=== PATIENT | male | born 1945 | race Caucasian/White ===

== ENCOUNTER 2021-05-04 12:50 | Emergency (ER) | payer MEDICARE ==
[2021-05-04] MEDS ORDERED: Ketorolac 60 MG/2 ML SDV IM ONE (13:32)
[2021-05-04] MEDS ORDERED: traMADol 50 MG Tab PO ONE (13:34)
--- NOTE | 2021-05-04 13:40 | EDM.PDOC ---
ED HPI GENERAL MEDICAL PROBLEM - General Chief Complaint: Lower Extremity Injury/Pain Stated Complaint: L KNEE PAIN Time Seen by Provider: 05/04/21 12:51 Source of Information: Reports: Patient History Limitations: Reports: No Limitations - History of Present Illness INITIAL COMMENTS - FREE TEXT/NARRATIVE: HISTORY AND PHYSICAL: History of present illness: The patient is a 76-year-old male who presents to the emergency room with complaints of left medial knee pain for approximately 2 months. He states that the last 2 to 3 weeks the pain has intensified to an 8 out of 10. Patient states that he has been taking up to 8 Motrins a day, 2 extra strength Tylenol, and 2 Aleve daily. His last dose of Motrin was at 02 100 this morning. The patient states that his pain stays the same position or weightbearing he is. The patient denies any injury. The patient states that he did have previous arthroscopic knee surgery previously but is unsure why. Patient has a appointme nt on Friday at [facility] with a provider from [place] and a appointment in [place] on Friday. The patient is here primarily for pain control. Patient does state that he has some small amount of swelling in his left lower extremity. Patient denies any fever, chills, headache, change in vision, syncope or near syncope. Denies any chest pain, back pain, shortness of breath or cough. Denies any abdominal pain, nausea, vomiting, diarrhea, constipation or dysuria. Has not noted any blood in urine or stool. Patient has been eating and drinking appropriately. Review of systems: As per history of present illness and below otherwise all systems reviewed and negative. Past medical history: As per history of present illness and as reviewed below otherwise noncontributory. Surgical history: As per history of present illness and as reviewed below otherwise noncontributory. Social history: See social history for further information Family history: As per history of present illness and as reviewed below otherwise noncontributory. Physical exam: General: Well developed and well nourished. Alert and orientated x 3. Nontoxic in appearance and in no acute distress. Vital signs are stable and have been reviewed by me. Nursing notes were reviewed. HEENT: Atraumatic, normocephalic, pupils equal and reactive bilaterally, negative for conjunctival pallor or scleral icterus, mucous membranes moist, TMs normal bilaterally, throat clear, neck supple, nontender, trachea midline. No drooling or trismus noted. No meningeal signs. No hot potato voice noted. Lungs: Clear to auscultation bilaterally. No wheezes, rales, or rhonchi. Chest nontender. Normal work of breathing, no accessory muscles used. Heart: S1S2, regular rate and rhythm without overt murmur, gallops, or rubs. No JVD. 1+ left foot. Abdomen: Soft, nondistended, nontender. Normoactive bowel sounds. Negative for masses or costovertebral tenderness. Skin: Intact, warm, dry. No lesions or rashes noted. Hematologic: No petechiae or purpra. Mucosa appropriate color and normal nail bed color and refill. Extremities: Atraumatic, moves all extremities per self without difficulty or deficits, negative for cords or calf pain. Neurovascular unremarkable. Neuro: Awake, alert, oriented. Cranial nerves II through XII unremarkable. Cerebellum unremarkable. Motor and sensory unremarkable throughout. Exam nonfocal. Psychiatric: Mood and affect are appropriate. Normal thought process. Answering questions appropriately. Notes: *This patient was seen and evaluated during the 2019 SARS-CoV-2 novel coronavirus pandemic period. Community viral transmission is ongoing at time of this encounter and the emergency department is operating under pandemic response procedures. As stated above the patient is a 69-year-old male who presents for pain control of his medial left knee, which has been ongoing for 2 to 3 months with the last 2 to 3 weeks severe pain. Patient has an appointment on Friday with an orthopedic from [place] at [facility] and a backup appointment on Friday in [place]. The patient is here primarily for pain control. He has been taking Motrin with, Tylenol, and Advil. The patient states that he has been having difficulty with constipation. For today's purposes I will get a knee x- ray, treat his pain with Toradol and tramadol. I will send him home with a prescription for tramadol 50 mg every 4 hours as needed for pain. And I will have him keep his orthopedic appointment for Friday. I did explain to the patient that I was unable to get an MRI of the knee through the emergency department at this time. Left knee x-ray results per radiologist: Moderate to severe degenerative changes of the knee worst in the medial compartment without evidence of acute osseous abnormality. The patient's pain has resolved with the Toradol and tramadol. I had prescribed Voltaren gel but the patient states that he has some at home and this does not help. I advised the patient just to get his prescription of tramadol filled. I have talked with the patient about today's findings, in addition to providing specific details for plan of care. Reassessment at the time of disposition de monstrates that the patient is in no acute distress. The patient is stable for discharge, counseling was provided and we discussed in great detail signs and symptoms that would prompt them to return to the Emergency Department. Medication, follow up and supportive care measures were reviewed and discussed. Voices understanding and is agreeable to plan of care. Denies any further questions or concerns at this time. Diagnostics: Left knee x-ray Therapeutics: Toradol 60 mg IM, tramadol 50 mg p.o. Prescription: Tramadol 50 mg p.o. every 4 hours as needed for pain #25 Impression: Left knee pain Plan: 1. You were evaluated today on an emergent basis. Your left knee pain was evaluated with an x-ray and examination. You were treated with Toradol 60 mg IM and tramadol 50 mg orally, which helped her pain. I will send you home with tramadol 50 mg by mouth every 4 hours as needed for pain. If you do take 2 at a time please ensure you leave 6 hours between doses. Your knee x-ray showed: Moderate to severe degenerative changes of the knee worst in the medial compartment without evidence of acute osseous abnormality. Please keep your orthopedic appointment on Friday. 2. You can alternate Tylenol and ibuprofen as needed for pain and fever management. 3. We encourage you to follow up with your primary care provider and/or recommended specialist in the next few days for re-evaluation and further care/management. 4. If your symptoms should worsen, new symptoms develop or any of the signs and symptoms we discussed should arise please return to the emergency room or call 911 (if needed). Definitive disposition and diagnosis as appropriate pending reevaluation and review of above. Left Knee Pain Score (Numeric/FACES): 8 - Related Data Allergies Allergy/AdvReac Type Severity Reaction Status Date / Time No Known Allergies Allergy Verified 05/02/17 11:02 Home Meds: Home Meds Clopidogrel [Plavix] 75 mg PO DAILY 05/04/21 [History] Diclofenac Sodium [Voltaren 1% Gel] 2 gm TOP QID PRN 4 Days #100 gm 05/04/21 [Rx] Rosuvastatin [Crestor] 40 mg PO DAILY 05/04/21 [History] traMADol [Ultram] 50 mg PO Q4H PRN 4 Days #25 tab 05/04/21 [Rx] Past Medical History Cardiovascular History: Reports: High Cholesterol Musculoskeletal History: Reports: Back Pain, Chronic - Infectious Disease History Infectious Disease History: Reports: Measles - Past Surgical History Cardiovascular Surgical History: Reports: AAA Repair Social & Family History - Tobacco Use Tobacco Use Status *Q: Current Every Day Tobacco User Years of Tobacco use: 50 Packs/Tins Daily: 0.3 - Caffeine Use Caffeine Use: Reports: None - Recreational Drug Use Recreational Drug Use: No Review of Systems - Review of Systems Review Of Systems: Comprehensive ROS is negative, except as noted in HPI. ED EXAM, GENERAL - Physical Exam Exam: See Below (See dictation) Course - Vital Signs Last Recorded V/S: Last Vital Signs Temp 96.7 F L 05/04/21 13:07 Pulse 73 05/04/21 15:01 Resp 16 05/04/21 15:01 BP 111/72 05/04/21 15:01 Pulse Ox 92 L 05/04/21 15:01 - Orders/Labs/Meds Meds: Medications Discontinued Medications Generic Name Dose Route Start Last Admin Trade Name Freq PRN Reason Stop Dose Admin Ketorolac Tromethamine 60 mg 05/04/21 13:32 05/04/21 13:49 Ketorolac 60 Mg/2 Ml Sdv IM 05/04/21 13:33 60 mg ONETIME ONE Administration Tramadol HCl 50 mg 05/04/21 13:34 05/04/21 13:49 Tramadol 50 Mg Tab PO 05/04/21 13:35 50 mg ONETIME ONE Administration Departure - Departure Time of Disposition: 14:51 Disposition: Home, Self-Care 01 Condition: Good Clinical Impression: Knee pain - Discharge Information *PRESCRIPTION DRUG MONITORING PROGRAM REVIEWED*: Not Applicable *COPY OF PRESCRIPTION DRUG MONITORING REPORT IN PATIENT SANDY: Not Applicable Prescriptions: traMADol [Ultram] 50 mg PO Q4H PRN 4 Days #25 tab PRN Reason: Pain (Severe 7-10) Diclofenac Sodium [Voltaren 1% Gel] 2 gm TOP QID PRN 4 Days #100 gm PRN Reason: Pain (Severe 7-10) Instructions: Acute Knee Pain, Adult Referrals: PCP,None [Primary Care Provider] - Forms: ED Department Discharge Additional Instructions: The following information is given to patients seen in the emergency department who are being discharged to home. This information is to outline your options for follow-up care. We provide all patients seen in our emergency department with a follow-up referral. The need for follow-up, as well as the timing and circumstances, are variable depending upon the specifics of your emergency department visit. If you don't have a primary care physician on staff, we will provide you with a referral. We always advise you to contact your personal physician following an emergency department visit to inform them of the circumstance of the visit and for follow-up with them and/or the need for any referrals to a consulting specialist. The emergency department will also refer you to a specialist when appropriate. This referral assures that you have the opportunity for follow-up care with a specialist. All of these measure are taken in an effort to provide you with optimal care, which includes your follow-up. Under all circumstances we always encourage you to contact your private physician who remains a resource for coordinating your care. When calling for follow-up care, please make the office aware that this follow-up is from your recent emergency room visit. If for any reason you are refused follow-up, please contact the [facility] Emergency Department at and asked to speak to the emergency department charge nurse. [facility] - Primary Care [address] [place] [address] [id number] [address] [address] Plan: 1. You were evaluated today on an emergent basis. Your left knee pain was evaluated with an x-ray and examination. You were treated with Toradol 60 mg IM and tramadol 50 mg orally, which helped her pain. I will send you home with tramadol 50 mg by mouth every 4 hours as needed for pain. If you do take 2 at a time please ensure you leave 6 hours between doses. Your knee x-ray showed: Moderate to severe degenerative changes of the knee worst in the medial compartment without evidence of acute osseous abnormality. Please keep your orthopedic appointment on Friday. 2. You can alternate Tylenol and ibuprofen as needed for pain and fever management. 3. We encourage you to follow up with your primary care provider and/or recommended specialist in the next few days for re-evaluation and further care/management. 4. If your symptoms should worsen, new symptoms develop or any of the signs and symptoms we discussed should arise please return to the emergency room or call 911 (if needed). Sepsis Event Note (ED) - Evaluation Sepsis Screening Result: No Definite Risk - Focused Exam Vital Signs: Vital Signs Temp Pulse Resp BP Pulse Ox 05/04/21 15:01 73 16 111/72 92 L 05/04/21 13:07 96.7 F L 80 16 156/89 H 92 L
--- NOTE | 2021-05-04 14:35 | CR ---
Indication: Left knee pain Comparison: None available. Technique: Standing AP, lateral, and sunrise views left knee were obtained Findings: There is no displaced fracture or dislocation. There is moderate to severe degenerative change worst in the medial compartment with joint space loss and tibial spine spurring. Enthesopathic changes at the insertion of the quadriceps and patellar tendons are appreciated. The soft tissues are unremarkable. Impression: Moderate to severe degenerative changes of the knee worst in the medial compartment without evidence of acute osseous abnormality. Dictated by Ben Rachel MD @ 05/04/2021 2:34:[address] Ben Rachel @ May 04 2021 2:34PM
== END 2021-05-04 15:01 | disposition home or self-care (01) ==
LOC: MW.ED 12:50
DX: M25.562 Pain in left knee (principal); E78.00 Pure hypercholesterolemia, unspecified; Z72.0 Tobacco use; Z79.899 Other long term (current) drug therapy
CPT/HCPCS: 73562; 96372; 99283; A9270; J1885

== ENCOUNTER 2024-03-25 12:41 | Emergency (ER) | payer MEDICARE ==
[2024-03-25 13:19] LABS: APPEARANCE,URINE CLOUDY; BILIRUBIN,URINE NEGATIVE (NEGATIVE); COLOR,URINE YELLOW; GLUCOSE,URINE NEGATIVE (NEGATIVE); KETONES,URINE NEGATIVE (NEGATIVE); LEUKOCYTE ESTERASE,URINE MODERATE (NEGATIVE); NITRITE,URINE POSITIVE (NEGATIVE); OCCULT BLOOD,URINE TRACE-INTACT (NEGATIVE); PROTEIN,URINE NEGATIVE (NEGATIVE)
[2024-03-25] MEDS: Sodium Chloride 0.9% 1,000 ML IV ONE (13:33)
[2024-03-25] MEDS: Sodium Chloride 0.9% 10 ML Syringe FLUSH PRN (13:34)
[2024-03-25] MEDS: Sodium Chloride 0.9% 2.5 ML Syringe FLUSH PRN (13:34)
[2024-03-25 13:36] LABS: BACTERIA,URINE MODERATE (NEGATIVE); RBC,URINE 0-3 (0-2/HPF); WBC,URINE TO NUMEROUS TO COUNT (0-5/HPF)
[2024-03-25 13:50] LABS: BASOPHILS ABSOLUTE AUTO 0.04 K/uL (0.00-0.20); BASOPHILS PERCENT AUTO 0.6 % (0.0-1.0); EOSINOPHILS ABSOLUTE AUTO 0.17 K/uL (0.00-0.45); EOSINOPHILS PERCENT AUTO 2.4 % (0.0-6.0); HEMATOCRIT 44.7 % (42.0-52.0); HEMOGLOBIN 15.2 g/dL (14.0-18.0); IMMATURE GRAN ABSOLUTE AUTO 0.08 K/uL (0.00-0.05); IMMATURE GRAN PERCENT AUTO 1.1 % (0.0-0.4); LYMPHOCYTES ABSOLUTE AUTO 1.93 K/uL (1.00-4.80); LYMPHOCYTES PERCENT AUTO 26.8 % (24.0-44.0); MEAN CORPUSCULAR HEMOGLOBIN 30.8 pg (28.0-32.0); MEAN CORPUSCULAR VOLUME 90.5 fL (83.0-99.0); MEAN PLATELET VOLUME 9.7 fL (9.4-12.4); MONOCYTES ABSOLUTE AUTO 0.48 K/uL (0.00-0.80); MONOCYTES PERCENT AUTO 6.7 % (0.0-8.0); NEUTROPHILS PERCENT AUTO 62.4 % (41.0-71.0); PLATELET COUNT,PLT 181 K/uL (150-400); RED BLOOD CELL COUNT 4.94 M/uL (4.52-5.90)
[2024-03-25 14:19] LABS: CALCIUM 8.3 mg/dL (8.5-10.1); EST CRCL DRUG DOSING (CG) 59.82 mL/min; POTASSIUM,K 3.3 mmol/L (3.5-5.1)
[2024-03-25] MEDS: cefTRIAXone 2 GM in Sodium Chloride 0.9% 50 ML IV ONE (15:17)
[2024-03-25] MEDS: Potassium Chloride 20 MEQ Tab.ER PO ONE (16:04)
== END 2024-03-25 16:10 | disposition home or self-care (01) ==
LOC: MW.ED 12:41
DX: N39.0 Urinary tract infection, site not specified (principal); E87.1 Hypo-osmolality and hyponatremia; Z75.8 Other problems related to medical facilities and other health care; Z79.02 Long term (current) use of antithrombotics/antiplatelets; Z79.899 Other long term (current) drug therapy
CPT/HCPCS: 36415; 80048; 81001; 83605; 85025; 96361; 96365; 99284; A9270; J0696; J3490; J7030

== ENCOUNTER 2024-04-14 14:41 | Emergency (ER) | payer MEDICARE ==
[2024-04-14 15:01] LABS: APPEARANCE,URINE SLT CLOUDY; COLOR,URINE YELLOW; GLUCOSE,URINE NEGATIVE (NEGATIVE); KETONES,URINE TRACE mg/dL (NEGATIVE); LEUKOCYTE ESTERASE,URINE SMALL (NEGATIVE); NITRITE,URINE NEGATIVE (NEGATIVE); OCCULT BLOOD,URINE SMALL (NEGATIVE); PROTEIN,URINE TRACE mg/dL (NEGATIVE); UROBILINOGEN,URINE 0.2 EU/dL (<2.0)
[2024-04-14 15:07] LABS: BILIRUBIN,URINE SMALL (NEGATIVE)
[2024-04-14 15:08] LABS: BACTERIA,URINE FEW (NEGATIVE); EPITHELIAL CELLS,URINE FEW (NONE-FEW); MUCUS,URINE LIGHT (NONE-MOD); RBC,URINE 0-3 (0-2/HPF); WBC,URINE 20-30 (0-5/HPF)
[2024-04-14] MEDS: Sodium Chloride 0.9% 1,000 ML IV ONE (15:12)
[2024-04-14 15:28] LABS: BASOPHILS ABSOLUTE AUTO 0.05 K/uL (0.00-0.20); BASOPHILS PERCENT AUTO 0.5 % (0.0-1.0); EOSINOPHILS ABSOLUTE AUTO 0.14 K/uL (0.00-0.45); EOSINOPHILS PERCENT AUTO 1.4 % (0.0-6.0); HEMATOCRIT 46.3 % (42.0-52.0); HEMOGLOBIN 15.9 g/dL (14.0-18.0); IMMATURE GRAN ABSOLUTE AUTO 0.03 K/uL (0.00-0.05); IMMATURE GRAN PERCENT AUTO 0.3 % (0.0-0.4); LYMPHOCYTES ABSOLUTE AUTO 1.87 K/uL (1.00-4.80); LYMPHOCYTES PERCENT AUTO 19.1 % (24.0-44.0); MEAN CORPUSCULAR HEMOGLOBIN 31.1 pg (28.0-32.0); MEAN CORPUSCULAR HGB CONC 34.3 g/dL (32.0-36.0); MEAN CORPUSCULAR VOLUME 90.6 fL (83.0-99.0); MEAN PLATELET VOLUME 10.6 fL (9.4-12.4); MONOCYTES ABSOLUTE AUTO 0.65 K/uL (0.00-0.80); MONOCYTES PERCENT AUTO 6.6 % (0.0-8.0); NEUTROPHILS ABSOLUTE AUTO 7.04 K/uL (1.80-7.70); NEUTROPHILS PERCENT AUTO 72.1 % (41.0-71.0); PLATELET COUNT,PLT 146 K/uL (150-400); RED BLOOD CELL COUNT 5.11 M/uL (4.52-5.90); WHITE BLOOD CELL COUNT,WBC 9.78 K/uL (3.9-11.3)
[2024-04-14 16:03] LABS: A/G RATIO 0.9 (0.9-1.6); ALANINE AMINOTRANSFERASE,ALT 25 IU/L (14-63); ALBUMIN 3.5 g/dL (3.4-5.0); ALKALINE PHOSPHATASE 94 U/L (46-116); ASPARTATE AMNIOTRANSFERASE,AST 15 IU/L (15-37); BILIRUBIN TOTAL 0.6 mg/dL (0.2-1.0); BLOOD UREA NITROGEN,BUN 13 mg/dL (7.0-18.0); CALCIUM 8.5 mg/dL (8.5-10.1); CARBON DIOXIDE,CO2 26.2 mmol/L (21.0-32.0); CHLORIDE,CL 100 mmol/L (98-107); GLUCOSE RANDOM 125 mg/dL (74-106); MAGNESIUM 2.1 mg/dL (1.8-2.4); POTASSIUM,K 3.8 mmol/L (3.5-5.1); PROTEIN TOTAL,TP 7.3 g/dL (6.4-8.2); SODIUM,NA 136 mmol/L (136-148)
[2024-04-14 16:05] LABS: ESTIMATED GFR 76 mL/min (>60)
[2024-04-14 16:09] LABS: CORONAVIRUS COVID-19 NAA NEGATIVE (NEGATIVE)
[2024-04-14] MEDS: cefTRIAXone 2 GM in Sodium Chloride 0.9% 50 ML IV ONE (16:26)
[2024-04-14 16:52] LABS: INFLUENZA A NAA NEGATIVE (NEGATIVE); INFLUENZA B NAA NEGATIVE (NEGATIVE); RESPIRATORY SYNCYTIAL VIR NAA NEGATIVE (NEGATIVE)
[2024-04-14] MEDS: Iopamidol 755 MG/ML 500 ML Multipack Bottle IVPUSH STA (17:28)
== END 2024-04-14 21:33 | disposition home or self-care (01) ==
LOC: MW.ED 14:41
DX: N39.0 Urinary tract infection, site not specified (principal); R09.02 Hypoxemia; E78.00 Pure hypercholesterolemia, unspecified; Z79.899 Other long term (current) drug therapy; Z75.8 Other problems related to medical facilities and other health care
CPT/HCPCS: 0241U; 36415; 71045; 71275; 80053; 81001; 83735; 84484; 85025; 87086; 93005; 96361; 96365; 99285; J0696; J3490; J7030; Q9967; 93010; 99284

== ENCOUNTER 2024-04-30 15:20 | Emergency (ER) | payer MEDICARE ==
[2024-04-30] MEDS ORDERED: Sodium Chloride 0.9% 10 ML Syringe FLUSH PRN (15:32)
[2024-04-30] MEDS ORDERED: Sodium Chloride 0.9% 2.5 ML Syringe FLUSH PRN (15:32)
[2024-04-30] MEDS: Diphtheria,Pertussis(Acell),Tetanus Vaccine 0.5 ML Syringe IM ONE (16:55)
[2024-04-30] MEDS: Iopamidol 755 MG/ML 500 ML Multipack Bottle IVPUSH STA (17:54)
[2024-04-30 18:23] LABS: BASOPHILS ABSOLUTE AUTO 0.04 K/uL (0.00-0.20); BASOPHILS PERCENT AUTO 0.4 % (0.0-1.0); EOSINOPHILS ABSOLUTE AUTO 0.09 K/uL (0.00-0.45); HEMATOCRIT 45.7 % (42.0-52.0); HEMOGLOBIN 15.5 g/dL (14.0-18.0); IMMATURE GRAN ABSOLUTE AUTO 0.03 K/uL (0.00-0.05); IMMATURE GRAN PERCENT AUTO 0.3 % (0.0-0.4); LYMPHOCYTES ABSOLUTE AUTO 1.74 K/uL (1.00-4.80); LYMPHOCYTES PERCENT AUTO 18.8 % (24.0-44.0); MEAN CORPUSCULAR HGB CONC 33.9 g/dL (32.0-36.0); MEAN CORPUSCULAR VOLUME 91.4 fL (83.0-99.0); MEAN PLATELET VOLUME 10.1 fL (9.4-12.4); MONOCYTES PERCENT AUTO 6.5 % (0.0-8.0); NEUTROPHILS ABSOLUTE AUTO 6.76 K/uL (1.80-7.70); PLATELET COUNT,PLT 152 K/uL (150-400); WHITE BLOOD CELL COUNT,WBC 9.26 K/uL (3.9-11.3)
[2024-04-30 18:33] LABS: INR 1.01 (0.86-1.11)
[2024-04-30 18:45] LABS: ALANINE AMINOTRANSFERASE,ALT 36 IU/L (14-63); ALBUMIN 3.6 g/dL (3.4-5.0); ALKALINE PHOSPHATASE 88 U/L (46-116); ASPARTATE AMNIOTRANSFERASE,AST 19 IU/L (15-37); BILIRUBIN TOTAL 0.6 mg/dL (0.2-1.0); BLOOD UREA NITROGEN,BUN 17 mg/dL (7.0-18.0); CALCIUM 8.8 mg/dL (8.5-10.1); CARBON DIOXIDE,CO2 31.1 mmol/L (21.0-32.0); CHLORIDE,CL 101 mmol/L (98-107); EST CRCL DRUG DOSING (CG) 59.82 mL/min; ESTIMATED GFR 76 mL/min (>60); ETHANOL BLOOD MEDICAL <3 mg/dL; GLUCOSE RANDOM 121 mg/dL (74-106); PROTEIN TOTAL,TP 7.1 g/dL (6.4-8.2); SODIUM,NA 138 mmol/L (136-148)
== END 2024-04-30 18:33 | disposition other institution (70) ==
LOC: MW.ED 15:20
DX: S06.360A Traumatic hemorrhage of cerebrum, unspecified, without loss of consciousness, initial encounter (principal); E78.00 Pure hypercholesterolemia, unspecified; Z79.899 Other long term (current) drug therapy; Z23 Encounter for immunization; W19.XXXA Unspecified fall, initial encounter
CPT/HCPCS: 36415; 70450; 70496; 70498; 71045; 72125; 73030; 73060; 80053; 80307; 82947; 84484; 85025; 85610; 90471; 90715; 93005; 96374; 99285; J1953; J7060; Q9967; 93010; 99291